=== PATIENT | male | born 1965 | race Caucasian/White ===

== ENCOUNTER 2016-12-24 10:18 | Inpatient (IN) | payer OTHER ==
--- NOTE | 2016-12-18 17:32 | CONS ---
DATE OF ADMISSION: 12/24/2016 DATE OF CONSULTATION: TYPE OF CONSULTATION: Preoperative Evaluation Thank you very much for allowing me to evaluate this 51-year-old male who is to undergo lumbar back surgery. HISTORICAL EVENTS: As you well know, this patient has had low back pain for at least 8 to 10 years and has been under your care. He has intermittently felt good, but for the most part has had ongoin g low back pain and radicular leg pain, right more than left. Because of worsening of his symptoms over the last several months and no response to conservative therapy, he elected to proceed with angelina gical intervention. Today, he denies cough, wheezing, shortness of breath, substernal chest pain, r adiating neck, arm or jaw discomfort at rest or with exertion. He denies nausea, vomiting, abdomina l pain, unusual constipation or diarrhea, and denies symptoms of gastrointestinal bleeding with r eview of systems being unrevealing. MEDICATIONS: Include pravastatin 10 mg a day. PAST MEDICAL HISTORY: Includes: 1. Hyperlipidemia. 2. Colonoscopy at age 48 that was unrevealing. 3. No history of hypertension, diabetes, coronary artery disease, ulcers or stroke. FAMILY HISTORY: Noncontributory as he was adopted. SOCIAL HISTORY: He is , has 3 kids. 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 Does not smoke. PHYSICAL EXAMINATION: GENERAL: Clutier male in no acute distress. VITAL SIGNS: Blood pressure 123/78, respirations were 18. He was afebrile. EYES: Extraocular muscles were full. NOSE, MOUTH, AND THROAT: Normal. NECK: Supple. There was no jugular venous distention, thyroid enlargement or adenopathy. Carotids 2+, no bruits. LUNGS: Clear. HEART: Rhythm regular, no murmur. No third or fourth sound. ABDOMEN: Nontender. Liver and spleen were not palpable. No masses or tenderness were noted. EXTREMITIES: No edema. Calves nontender. NEUROLOGIC: No lateralizing motor weakness IMPRESSION: I forsee no problems with your planned surgical intervention. Labs will be reviewed by me and I will follow postop. Dictated By: GENOVEVA TROY/JAM Conf#: [id number] DID#: [id number] CC: ABELARDO HILLIARD MD;*[facility]*
[2016-12-24] VITALS (21 sets, daily range): BP systolic 95–153; BP diastolic 53–84; PULSE 68–88; RESP 9–20; Ht 188 cm; Wt 95.8 kg
[~2016-12-24] VITALS: Ht 188 cm; Wt 95.8 kg
[2016-12-24] MEDS ORDERED: PROPOFOL 100 ML ONE (11:07)
[2016-12-24] MEDS ORDERED: SUCCINYLCHOLINE CHLORIDE 100 MG/5 ML SYG IV ONE (11:07)
[2016-12-24] MEDS ORDERED: ROCURONIUM 50 MG INJ ONE (11:07)
[2016-12-24] MEDS ORDERED: MIDAZOLAM 1 MG/ML 2 ML INJ ONE (11:08)
[2016-12-24] MEDS ORDERED: FENTAnyl 50 MCG/ML VIAL ONE (11:08)
[2016-12-24] MEDS ORDERED: PRAV10TA43 PO (11:37)
--- NOTE | 2016-12-24 11:49 | HPN ---
Date/Time of Note Date/Time of Note DATE: 12/24/16 TIME: 11:49 Interval H&P Admission Note Pt. seen H&P reviewed: No system changes ABELARDO HILLIARD MD Dec 24, 2016 11:49
[2016-12-24] MEDS ORDERED: BUPIVACAINE 0.25% (MPF) 10 ML 10 ML VIAL ONE (11:59)
[2016-12-24] MEDS ORDERED: THROMBIN 5000 UNIT VIAL ONE (11:59)
[2016-12-24] MEDS ORDERED: GELATIN SIZE 100 SPONGE ONE (11:59)
[2016-12-24] MEDS ORDERED: POLYMYXIN/BACITRACIN 1L IRRIG ONE (11:59)
[2016-12-24] MEDS ORDERED: CEFAZOLIN 2 GM/50 ML (PMX) 50 ML IVPB SCH (12:30)
[2016-12-24] MEDS ORDERED: LABETALOL HCL 20MG INJ ONE (13:18)
[2016-12-24] MEDS ORDERED: DIPHENHYDRAMINE 50 MG INJ ONE (13:18)
[2016-12-24] MEDS ORDERED: hydrALAzine 20 MG INJ ONE (13:22)
[2016-12-24] MEDS ORDERED: DEXAMETHASONE 4 MG/ML 1 ML INJ ONE (13:24)
[2016-12-24] MEDS ORDERED: ONDANSETRON 4 MG INJ ONE (13:24)
[2016-12-24] MEDS ORDERED: METOCLOPRAMIDE 10 MG INJ ONE (13:24)
[2016-12-24] MEDS ORDERED: FAMOTIDINE 20 MG INJ ONE (13:24)
[2016-12-24] MEDS ORDERED: ACETAMINOPHEN 1000MG/100ML IV 100 ML ONE (13:40)
[2016-12-24] MEDS ORDERED: BUPIVACAINE 0.25% (MPF) 10 ML 10 ML VIAL INJ ONE (13:50)
[2016-12-24] MEDS ORDERED: POLYMYXIN/BACITRACIN 1L IRRIG IRR ONE (13:50)
[2016-12-24] MEDS: LACTATED RINGER'S 1,000 ML IV SCH ×2 (13:51→14:48)
[2016-12-24] MEDS ORDERED: HYDROmorphONE (0.2 MG/ML) 10ML SYG IV PRN ×2 (14:30)
[2016-12-24] MEDS ORDERED: LABETALOL HCL 20MG INJ IV PRN (14:30)
[2016-12-24] MEDS ORDERED: ONDANSETRON 4 MG INJ IV PRN ×2 (14:30→15:00)
[2016-12-24] MEDS ORDERED: EPHEDrine SULFATE 50 MG/5 ML SYG IV PRN (14:30)
[2016-12-24] MEDS ORDERED: DIPHENHYDRAMINE 50 MG INJ IV PRN (14:30)
[2016-12-24] MEDS ORDERED: morphine (1 MG/ML) 10ML SYRINGE IV PRN ×3 (14:30)
[2016-12-24] MEDS ORDERED: MEPERIDINE 25 MG INJ IV PRN (14:30)
[2016-12-24] MEDS ORDERED: hydrALAzine 20 MG INJ IV PRN (14:30)
[2016-12-24] MEDS ORDERED: METOCLOPRAMIDE 10 MG INJ IV PRN (14:30)
[2016-12-24] MEDS ORDERED: NEOSTIGMINE 3 MG/3 ML SYRINGE ONE (14:31)
[2016-12-24] MEDS ORDERED: GLYCOPYRROLATE 0.4 MG INJ ONE (14:31)
[2016-12-24] MEDS ORDERED: DIAZEPAM 5 MG TAB PO PRN (15:00)
[2016-12-24] MEDS ORDERED: ZOLPIDEM 5 MG TAB PO PRN (15:00)
[2016-12-24] MEDS ORDERED: AL HYDROX/MG HYDROX/SIMETH 30 ML CUP PO PRN (15:00)
[2016-12-24] MEDS ORDERED: NACL 0.9% 3 ML SYG IV SCH (15:00)
[2016-12-24] MEDS ORDERED: CEPASTAT LOZENGE MT PRN (15:00)
[2016-12-24] MEDS ORDERED: HYDROCODONE/APAP (5/325) TAB PO PRN (15:00)
[2016-12-24] MEDS ORDERED: BETHANECHOL 25 MG TAB PO PRN (15:00)
[2016-12-24] MEDS ORDERED: NALOXONE (0.4 MG/ML) INJ IV PRN (15:00)
[2016-12-24] MEDS ORDERED: ACETAMINOPHEN 325 MG TAB PO PRN (15:00)
[2016-12-24] MEDS ORDERED: PROCHLORPERAZINE 10 MG TAB PO PRN (15:00)
[2016-12-24] MEDS ORDERED: DIAZEPAM 5 MG/ML SYG IM PRN (15:00)
[2016-12-24] MEDS ORDERED: DIPHENHYDRAMINE 50 MG CAP PO PRN (15:00)
[2016-12-24] MEDS ORDERED: TRIMETHOBENZAMIDE 100 MG/ML VIAL IM PRN (15:00)
--- NOTE | 2016-12-24 15:06 | OPR ---
Date/Time of Note Date/Time of Note DATE: 12/24/16 TIME: 15:02 Operative Report Preoperative Diagnosis Spinal Stenosis L4-5 Postoperative Diagnosis Same Operation Performed Central decompressive laminectomy at L4 Inspection of the L4-5 disc on the right Medial facetectomy and foraminotomy L4-5 bilaterally Cosmetic wound closure (4 cm) Lateral localizing lumbar radiographs (2) Intraoperative nerve monitoring (1 hour) Surgeon: ABELARDO HILLIARD MD human resource assistant: MIRTHA BENNETT Anesthesia: general Anesthesiologist: ANGIE FREEMAN MD Estimated Blood Loss: 10 - 50 ml's Specimens Spinous process of L4 Tubes/Drains 2 medium Hemovac drains employed Complications: None Pt Condition Post Procedure: stable Disposition: PACU Operative\Procedure Findings At surgery, moderate central and moderately severe lateral recess stenosis at L4 -5 was confirmed. The L4-5 disc was inspected and although bulging it was not herniated and did not merit removal. ABELARDO HILLIARD MD Dec 24, 2016 15:06
--- NOTE | 2016-12-24 15:14 | RADRPT ---
PROCEDURE: XR Lumbar Spine. CLINICAL INDICATION: LUMBAR LAMINECTOMY TECHNIQUE: A single lateral view of the lumbar spine was obtained. COMPARISON: No prior studies are available for comparison. FINDINGS: There is normal osseous mineralization. There is straightening of the lumbar spine. Posterior localizer pains are identified at the L4-5 and L5-S1 levels. There is severe degenerative disk disease at L5-S1 including disk space narrowing and endplate scler osis. IMPRESSION: Posterior localizer pains are identified at the L4-5 and L5-S1 levels. RPTAT: EE Physician Live Date Time Electronically viewed and signed by Physician Live on 12/24/2016 15:14 /
--- NOTE | 2016-12-24 15:15 | RADRPT ---
PROCEDURE: XR Lumbar Spine. CLINICAL INDICATION: LUMBAR LAMINECTOMY TECHNIQUE: A single lateral view of the lumbar spine was obtained. COMPARISON: No prior studies are available for comparison. FINDINGS: There is normal osseous mineralization. There is straightening of lumbar lordosis. Posterior localizer pains are identified at the L4-5 level as well as postsurgical material. IMPRESSION: Posterior localizer pains are identified at the L4-5 level. RPTAT: EE Physician Live Date Time Electronically viewed and signed by Physician Live on 12/24/2016 15:15 RA/
[2016-12-24] MEDS ORDERED: HYDROmorphONE (0.2 MG/ML) 10ML SYG IV ONE (15:18)
[2016-12-24] MEDS ORDERED: HYDROmorphONE 0.2 MG/ML PCA ONE (15:19)
[2016-12-24] MEDS: HYDROmorphONE (0.2 MG/ML) 10ML SYG IV PRN ×3 (15:21→16:04)
[2016-12-24] MEDS: HYDROmorphONE 0.2 MG/ML PCA IV SCH (15:28)
--- NOTE | 2016-12-24 16:12 | OPR ---
DATE OF OPERATION: 12/24/2016 PREOPERATIVE DIAGNOSIS: Lumbar spinal stenosis at L4-5. POSTOPERATIVE DIAGNOSIS: Lumbar spinal stenosis L4-5. OPERATION PERFORMED: 1. Central decompressive laminectomy at L4. 2. Inspection of the L4-L5 disk. 3. Medial facetectomy and foraminotomy, L4-5 bilaterally. 4. Cosmetic wound closure (4 cm). 5. Lateral localized lumbar radiographs (2). SURGEON: Israel Nunez MD WILD ANIMAL CARETAKER: MIRTHA RINCON. ANESTHESIA: General endotracheal. ANESTHESIOLOGIST: ANGIE FREEMAN MD. ESTIMATED BLOOD LOSS: 15 mL. FLUIDS REPLACED: None. DRAINS: Two medium Hemovac drains were employed. COMPLICATIONS: None. PERTINENT HISTORY AND PHYSICAL: This is a 51-year-old male who sustained an injury to his back in t he course of his employment on 07/08/2007. He has had extensive care since that time. He has remai kamari symptomatic with back and lower extremity complaints, right greater than left, which have been u nrelieved by conservative management. He has undergone a number of diagnostic studies including an MRI of the lumbar spine, which demonstrated moderately severe central stenosis at L4-L5 with some ce ntral and right-sided disk bulging. Treatment options discussed with the patient and he elected to proceed with surgery. OPERATIVE FINDINGS AT SURGERY: A moderately severe central and moderately severe lateral recess tree nosis at L4-L5 was confirmed. There was some bulging of the L4-L5 disk, but no herniation was ident ified. It did not merit removal. OPERATIVE PROCEDURE: With the patient in supine position after satisfactory induction of general en dotracheal anesthesia by Dr. Freeman, the patient was turned to the prone kneeling position on the [facility] frame. All pressure points were carefully padded. The back was prepped and draped in usual sterile fashion. Athrombic pumps were applied to the legs below the knees to prevent venous stasis during and after the procedure. Two spinal needles were placed next to what was felt to be the L4 spinous processes, a lateral roentgenogram was taken which confirmed anatomic localization. A 4 cm incision was carried out in the midline over the spinous process of L4 after the skin was infiltrate d with 0.25% Marcaine without epinephrine for postoperative analgesia. Superficial retractors were placed and hemostasis secured with electrocautery. Throughout the procedure, copious amounts of ant ibacterial irrigating solution were used to periodically irrigate the wound. The fascia was incised in midline with a hot knife and a bilateral subperiosteal dissection carried out at L4-5. Deep ret ractors were placed and deep hemostasis secured with electrocautery. A second intraoperative radiog raph was taken with a Delfin clamp placed in what was felt to be the spinous process of L4. This wa s confirmed with second x-ray. A central decompressive laminectomy was then carried out using a Hor sley right-angle bone rongeur, Leksell rongeur, Kerrison punches and curettes. Ligamentum flavum wa s excised with sharp dissection. The operating microscope was moved into place. A medial facetecto my and foraminotomy at L4-5 bilaterally was then accomplished. The L5 root on the right was mobiliz ed medially and protected with Benny'Claire nerve retractor using microdissection technique. This revea led some diffuse bulging of the L4-L5 disk, but no herniation was identified and it did not merit re moval. The epidural hemostasis was secured with bipolar electrocautery on low setting. The anesthe siologist was asked to perform a Valsalva maneuver at 40 mmHg and no spinal fluid leak was noted. T he wound was then closed in layers over 2 medium Hemovac drains, one below the fascia and one above the fascia using #1 Vicryl eaqkel-ot-seteh approximating sutures in deep paralumbar musculature and deep fascia of back, 2-0 Vicryl subcutaneous approximate sutures in subcu tissue, and a 4-0 Vicryl s ubcuticular cosmetic closing suture on the skin. Dermabond and sterile compressive dressings were a pplied. Patient having tolerated procedure well was then turned to the supine position onto his bed and extubated by Dr. Freeman. He was transported to recovery room in satisfactory condition. At t he conclusion of the procedure, sponge, instrument, and needle counts were all correct. NEED FOR WELD LAY OUT WORKER: During this spinal surgical procedure, my civil engineering assistant was used to retrac t and protect the spinal nerves and dural sac. My civil engineering assistant also employed the suction catheters to e vacuate blood from the surgical field to improve visualization of the neural structures. The assista nt was medically necessary to facilitate the completion of the surgery in a safe and expeditious man ner. [facility] regulations, as well as hospital bylaws, preclude the use of non-licensed [facility] care personnel such as operating room technicians, to perform these functions. Throughout the procedure, neuromonitoring was carried out by [employer] in cluding EMG, SSEP and MEP monitoring of the L3, L4, L5 and S1 nerve roots bilaterally along with spi nal cord potentials. These were interpreted by neurologists employed by [employer]. Dictated By: ISRAEL NUNEZ MD TM/NTS Conf#: [id number] DID#: [id number] CC: GENOVEVA WHITFIELD MD;*End*
--- NOTE | 2016-12-24 16:51 | PREOPHP ---
DATE OF ADMISSION: 12/24/2016 MEDICAL CONSULTATION Thank you, Dr. Nunez, for asking me to participate in medical management of this patient. REASON FOR CONSULTATION: The patient is being speed is being seen now to manage his hyperlipidemia. HISTORY OF PRESENT ILLNESS: This 51-year-old man is now postop a lumbar spine surgery by Dr. Aure buckner. The patient is in the recovery room. The patient is lethargic, but arouses easily to verbal st imuli and answers questions appropriately. He is having some incisional back pain and is being medi cated. He denies any chest pain or shortness of breath. The patient's preoperative medication incl uded Pravastatin 10 mg a day. The patient has been having low back pain for 8 to 10 years. Recentl y the pain has become more severe and over the last several months he has had no response to conserv ative therapy. He decided to undergo a surgery to improve his symptoms. The patient underwent a chavarria rgery today by Dr. Nunez which included a central decompressive laminectomy at L4, medial facetec genaro and foraminotomy at L4-L5 bilaterally. The patient was diagnosed preoperatively with spinal st enosis at the L4-L5 level. PAST MEDICAL HISTORY: Remarkable for hyperlipidemia. He has no history of hypertension, diabetes m ellitus, coronary artery disease, ulcers, or stroke. FAMILY HISTORY: Noncontributory as he was adopted. SOCIAL HISTORY: He is with 3 kids. 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 PHYSICAL EXAMINATION: GENERAL: At this time reveals a well-developed man in no apparent distress. VITAL SIGNS: Pulse of 82, blood pressure 131/74, O2 saturation 98% on 2 L. HEENT: Head normocephalic. Eyes: Extraocular muscles intact. Nose and mouth: Normal. NECK: Supple. No neck vein distention. LUNGS: Clear to auscultation. HEART: Regular rhythm. No murmurs, gallops, or rubs. ABDOMEN: Soft, nontender. EXTREMITIES: No edema. IMPRESSION: This patient is stable after surgery today. His vital signs and blood pressure are in a good range. He is having some low back pain at the incision site, but is being medicated. PLAN: 1. Resume routine medications. 2. Check labs in the morning. 3. Postop lumbar spine surgery protocol. 4. I will follow the patient along with you. Dictated By: CAROLE ANAND MD, ND/JAM Conf#: [id number] DID#: [id number]
[2016-12-24] MEDS ORDERED: CEFAZOLIN 1 GM/50 ML (PMX) 50 ML IVPB ONE (18:17)
[2016-12-24] MEDS: CEFAZOLIN 1 GM/50 ML (PMX) 50 ML IVPB SCH (18:23)
[2016-12-24] MEDS: DEXTROSE 5%-0.45% NACL 1,000 ML IV SCH (20:00)
[2016-12-24] MEDS: ATORVASTATIN 10 MG TAB PO SCH (21:30)
[2016-12-24] MEDS: RANITIDINE 150 MG TAB PO SCH (21:30)
[2016-12-25] MEDS: CEFAZOLIN 1 GM/50 ML (PMX) 50 ML IVPB SCH ×3 (00:05→11:39)
[2016-12-25] MEDS: ATORVASTATIN 10 MG TAB PO SCH (00:09)
[2016-12-25] MEDS: DEXTROSE 5%-0.45% NACL 1,000 ML IV SCH ×3 (00:10→10:59)
[2016-12-25] MEDS: HYDROmorphONE 0.2 MG/ML PCA IV SCH (05:29)
[2016-12-25 05:46] LABS: HEMATOCRIT 40.8 % (42.0-52.0); HEMOGLOBIN 13.4 g/dl (14.0-18.0)
[2016-12-25 06:00] LABS: CALCIUM 8.8 mg/dl (8.4-10.2); CREATININE 0.7 mg/dl (0.61-1.24); POTASSIUM 4.3 mmol/L (3.5-5.1)
--- NOTE | 2016-12-25 07:23 | PN ---
Date/Time of Note Date/Time of Note DATE: 12/25/16 TIME: 07:21 Assessment/Plan Lines/Catheters IV Catheter Type (from Nrsg): Saline Lock Subjective 24 Hr Interval Summary Patient is postop day #1 from lumbar decompression. Vital signs are stable, hemoglobin this morning was 13.4. Drain overnight was 35 cc and this was removed. Neurovascular structures are intact distally. Anticipate possible discharge later today pending progress with PT. Discharge instructions reviewed with patient. Exam/Review of Systems Vital Signs Vitals Vital Signs Date Time Temp Pulse Resp B/P Pulse Ox O2 Delivery O2 Flow Rate FiO2 12/25/16 06:02 5 12/24/16 23:58 98.1 88 134/74 95 12/24/16 21:55 Room Air 12/24/16 15:14 4.0 Intake and Output 12/24/16 12/24/16 12/25/16 15:00 23:00 07:00 Intake Total 1400 ml 1590 ml 800 ml Output Total 25 ml 235 ml 1935 ml Balance 1375 ml 1355 ml -1135 ml Results Result Diagram: 12/25/16 0500 12/25/16 0500 MIRTHA BENNETT Dec 25, 2016 07:23
[2016-12-25] MEDS ORDERED: BETHANECHOL 25 MG TAB PO PRN (08:00)
[2016-12-25] MEDS: FERROUS SULFATE (EC) 325 MG TAB PO SCH ×2 (08:33→11:48)
[2016-12-25] MEDS: RANITIDINE 150 MG TAB PO SCH (08:33)
[2016-12-25] MEDS: HYDROCODONE/APAP (5/325) TAB PO PRN ×3 (08:34→13:23)
[2016-12-25 08:38] VITALS: BP 124/75; RESP 16
--- NOTE | 2016-12-25 08:39 | CONS ---
Date/Time of Note Date/Time of Note DATE: 12/25/16 TIME: 08:37 Assessment/Plan Assessment/Plan Additional Assessment/Plan 1. Doing well post op lumbar laminectomy 2. Abnl liver tests noted preop sec to fatty liver by hx, will recheck tomm 3. Hyperlipidemia, statin was continued Consultation Date/Type/Reason Admit Date/Time Dec 24, 2016 at 10:58 Initial Consult Date Detailed Summary Respiratory: No cough, No shortness of breath Cardiovascular: No chest pain, No orthopenea Gastrointestinal: no complaints Genitourinary: no complaints Musculoskeletal: back pain (mild) Exam/Review of Systems Vital Signs Vitals Vital Signs Date Time Temp Pulse Resp B/P Pulse Ox O2 Delivery O2 Flow Rate FiO2 12/25/16 06:02 5 12/24/16 23:58 98.1 88 134/74 95 12/24/16 21:55 Room Air 12/24/16 15:14 4.0 Intake and Output 12/24/16 12/24/16 12/25/16 15:00 23:00 07:00 Intake Total 1400 ml 1590 ml 1750 ml Output Total 25 ml 235 ml 1935 ml Balance 1375 ml 1355 ml -185 ml Exam Neck: No jvd Respiratory: clear to auscultation Cardiovascular: regular rate and rhythm Gastrointestinal: soft Extremities: No edema (and no calf tend) Results Result Diagram: 12/25/16 0500 12/25/16 0500 Results 24 hrs Laboratory Tests Test 12/24/16 12:20 12/25/16 05:00 Erythrocyte Sedimentation Rate 14 Hemoglobin 13.4 L Hematocrit 40.8 L Sodium Level 139 Potassium Level 4.3 Chloride Level 104 Carbon Dioxide Level 25 Anion Gap 14 Blood Urea Nitrogen 17 Creatinine 0.70 Glucose Level 164 Calcium Level 8.8 Medications Medications Current Medications Lactated Ringer's 1,000 ml @ 0 mls/hr Q0M IV Last administered on 12/24/16 14: 48; Start 12/24/16 at 12:30 Dextrose/Sodium Chloride (D5-1/2ns) 1,000 ml @ 100 mls/hr Q10H IV Last administered on 12/25/16 05:35; Admin Dose 100 MLS/HR; Start 12/24/16 at 14:59 Acetaminophen/ Hydrocodone Bitart (Anthony (5/325)) 1 tab Q4H PRN PO PAIN LEVEL 1 -5 Last administered on 12/25/16 08:34; Admin Dose 1 TAB; Start 12/24/16 at 15:00 Acetaminophen/ Hydrocodone Bitart 2 tab 2 tab Q4H PRN PO PAIN LEVEL 6-10; Start 12/24/16 at 15:00 Cefazolin Sodium (Ancef 1 Gm/50 ml (Pmx)) 50 ml @ 100 mls/hr Q6 IVPB Last administered on 12/25/16 05:27; Admin Dose 100 MLS/HR; Start 12/24/16 at 18:00; Stop 12/25/16 at 12:29 Zolpidem Tartrate (Ambien) 5 mg HS PRN PO INSOMNIA; Start 12/24/16 at 15:00 Prochlorperazine (Compazine) 10 mg Q4H PRN PO NAUSEA AND/OR VOMITING; Start 12/24/16 at 15:00 Trimethobenzamide HCl (Tigan) 200 mg Q4H PRN IM NAUSEA AND/OR VOMITING; Start 12/24/16 at 15:00 Ondansetron HCl (Zofran Inj) 4 mg Q6H PRN IV NAUSEA AND/OR VOMITING; Start 12/24 at 15:00 Al Hydrox/Mg Hydrox/Simethicone (Mag-Al Plus) 15 ml Q4H PRN PO CONSTIPATION; Start 12/24/16 at 15:00 Docusate Sodium (Colace) 100 mg BID PO Last administered on 12/25/16 08:33; Admin Dose 100 MG; Start 12/25/16 at 09:00 Acetaminophen (Tylenol Tab) 650 mg Q4H PRN PO TEMP GREATER THAN 101F OR BUTT; Start 12/24/16 at 15:00 Ascorbic Acid (Vitamin C) 1,000 mg BID PO Last administered on 12/25/16 08:33; Admin Dose 1,000 MG; Start 12/25/16 at 09:00 Ferrous Sulfate (Ferrous Sulfate (Ec)) 325 mg TID PO Last administered on 08:33; Admin Dose 325 MG; Start 12/25/16 at 09:00 Ranitidine HCl (Zantac) 150 mg BID PO Last administered on 12/25/16 08:33; Admin Dose 150 MG; Start 12/24/16 at 21:00 Diazepam (Valium) 5 mg Q4H PRN PO MUSCLE SPASMS; Start 12/24/16 at 15:00 Diazepam (Valium) 5 mg Q4H PRN IM MUSCLE SPASMS; Start 12/24/16 at 15:00 Phenol (Cepastat Lozenge) 1 lozenge PRN PRN MT SORE THROAT; Start 12/24/16 at 15 :00 Diphenhydramine HCl (Benadryl) 50 mg Q6H PRN PO PRURITUS; Start 12/24/16 at 15: 00 Hydromorphone HCl (Dilaudid DISCHARGE DOOR OPERATOR) Q4PCA IV Last administered on 12/25/16 05:29 ; Admin Dose 6 MG; Start 12/24/16 at 15:00 Naloxone HCl (Narcan) 0.2 mg Q2M PRN IV RR 8 BREATHS/MIN OR LESS; Start at 15:00 Atorvastatin Calcium (Lipitor) 10 mg DAILY@21 PO Last administered on 12/25/16 00:09; Admin Dose 10 MG; Start 12/24/16 at 21:00 Bethanechol Chloride (Urecholine) 25 mg PRN PRN PO UNABLE TO VOID; Start at 08:00 GENOVEVA WHITFIELD MD Dec 25, 2016 08:39
[2016-12-25] MEDS ORDERED: ASCORBIC ACID 500 MG TAB PO SCH (09:00)
[2016-12-25] MEDS ORDERED: DOCUSATE SODIUM 100 MG CAP PO SCH (09:00)
--- NOTE | 2016-12-25 18:20 | OPPN ---
Date/Time of Note Date/Time of Note DATE: 12/25/16 TIME: 18:20 Post-Anesthesia Notes Post-Anesthesia Note Last documented vital signs Vital Signs Date Time Temp Pulse Resp B/P Pulse Ox O2 Delivery O2 Flow Rate FiO2 12/25/16 08:38 98.3 87 16 124/75 96 12/24/16 21:55 Room Air 12/24/16 15:14 4.0 Activity: WNL Respiratory function: WNL Cardiovascular function: WNL Mental status: Baseline Pain reasonably controlled: Yes Hydration appropriate: Yes Nausea/Vomiting absent: Yes ANGIE FREEMAN MD Dec 25, 2016 18:20
[2016-12-25 20:02] VITALS: BP 118/64; PULSE 68; RESP 18
== END 2016-12-25 20:00 | disposition home or self-care (01) | DRG 517 ==
LOC: REC 10:58 → MS1 21:15
PROVIDERS: ADMIT Orthopaedic Surgery; ATTEND Orthopaedic Surgery
PROC: 01NB0ZZ Release Lumbar Nerve, Open Approach (ICD-10-PCS; principal; 2016-12-24 13:30)
DX: M48.06 Spinal stenosis, lumbar region (principal); K76.0 Fatty (change of) liver, not elsewhere classified; E78.5 Hyperlipidemia, unspecified
CPT/HCPCS: 72020; 80048; 85014; 85018; 85651; 86592; 86850; 86900; 86901; 86920; 97116; 97162; 97530; J0131; J0360; J0690; J1100; J1170; J1200; J2250; J2405; J2710; J2765; J3010; J7042; J7999